=== PATIENT | male | born 1970 | race Caucasian/White ===

== ENCOUNTER 2017-03-14 04:18 | Emergency (ER) | payer OTHER ==
[2017-03-14 04:26] VITALS: TEMP 97.5
[2017-03-14] MEDS ORDERED: NS 500 ML IV ONE (04:35)
--- NOTE | 2017-03-14 04:36 | EDPHY ---
H & P Time Seen by Provider: 03/14/17 04:33 HPI/ROS: HPI Chest discomfort. 46-year-old male by private vehicle. He is visiting from [place]. He is here to attend conference. He arrived at 9:00 p.m.. He reports that for the last week he has had intermittent chest discomfort which he describes as left-sided anterior. He describes this as mild. He states that it is not made worse with physical exertion or activity. He describes it as an intermittent dull ache. He has had some shortness of breath as well since being in the [facility]. He was seen in urgent care earlier this plain. They did EKG and told him it was normal. He is here for further evaluation. At the time of my evaluation he is denying any chest discomfort. He has no history or family history of coronary artery disease. No history of diabetes, hypertension, hyperlipidemia. He does not smoke. ROS: Constitutional: No fever, no chills. No weakness. Eyes: No discharge. No changes in vision. ENT: No sore throat. No nasal congestion or rhinorrhea. Respiratory: No cough. No shortness of breath. Cardiac: As above, no palpitations. Gastrointestinal: No abdominal pain, no vomiting, no diarrhea. Genitourinary: No hematuria. No dysuria or increased frequency with urination. Musculoskeletal: No back pain. No neck pain. No myalgias or arthralgias. Skin: No rashes. Neurological: No headache. No focal weakness or altered sensation. Past medical history: No significant past medical history. Social history: As above. He is here by himself. Physical Exam: General Appearance: Alert, no distress. This patient is responding to questions appropriately and in full sentences. This patient appears well- hydrated and well-nourished. Eyes: Pupils equal and round no pallor or injection. No lid edema, erythema or injection. Respiratory: There are no retractions, lungs are clear to auscultation with good air movement bilaterally. Cardiovascular: Regular rate and rhythm. No murmur. Neurological: Motor sensory function is grossly intact. Cranial nerves are normal. Gait is normal. Skin: Warm and dry, no rashes. Musculoskeletal: Neck is supple and nontender. Extremities are symmetrical. All joints range without pain or impingement. Psychiatric: No agitation. No depression. Database: EKG: EKG time is 4:32 a.m.; EKG shows a narrow complex normal sinus rhythm with a ventricular rate of 57. The [place], QRS, QT intervals are within normal limits. There are no ST-T wave changes indicative of ischemic or injury pattern. No evidence of right heart strain. Interpreted by me. Imaging: Chest x-ray P AP portable; the cardiac mediastinal silhouette is unremarkable. No evidence of infiltrate or pneumothorax. No acute cardiopulmonary disease process noted. Interpreted by me. Procedures: Emergency department course: Patient given 324 mg of chewed aspirin. IV placed. Vital signs reviewed and are normal. He was placed on a monitor. EKG and chest x-ray performed. 5:45 a.m., patient re-evaluated. Resting comfortably at this time. No chest pain. No shortness of breath. Results of his diagnostic workup were discussed with him. I discussed admission for observation and further testing. He does not want to do this at this time. I explained my reasoning for this. In my professional opinion he understood this reasoning. Plan will be to discharge him to home with close follow-up with Cardiology for provocative testing within the next 2-3 days. He is in agreement with this plan. Follow-up discussed in detail with him. Return to emergency department precautions reviewed. All of his questions were answered. He was discharged in good condition. Differential Diagnosis: The differential diagnosis on this patient includes but is not limited to esophageal spasm, pleurisy, mild acute mountain sickness, acute coronary syndrome, pulmonary emboli. Aortic dissection unlikely. This represents a partial list of diagnoses considered. These considerations are based on history , physical exam, past history, reassessment and diagnostic testing. Smoking Status: Never smoked Constitutional: Initial Vital Signs Temperature (C) 36.4 C 03/14/17 04:19 Heart Rate 65 03/14/17 04:19 Respiratory Rate 20 03/14/17 04:19 Blood Pressure 114/66 03/14/17 04:19 O2 Sat (%) 96 03/14/17 04:19 O2 Delivery Mode Room Air Allergies/Adverse Reactions: Penicillins Allergy (Verified 03/14/17 04:47) Medical Decision Making - Data Points Laboratory Results: Laboratory Results 03/14/17 04:35 03/14/17 04:35 Medications Given: Discontinued Medications Sodium Chloride (Ns) 500 mls @ 0 mls/hr IV ONCE ONE PRN Reason: As Directed Stop: 03/14/17 04:36 Last Admin: 03/14/17 04:45 Dose: 500 mls Departure - Departure Disposition: Home, Routine, Self-Care Clinical Impression: Chest discomfort Condition: Good Instructions: Chest Pain (ED) Additional Instructions: Read and follow provided instructions. Follow-up with Cardiology as discussed within the next 2-3 days for a stress test. Call the office of [facility] at 9:00 a.m. this morning for appointment time. Explained this is for an emergency department follow-up. Return to the emergency department immediately for worsening chest pain, worsening shortness of breath or other serious concerns. Referrals: Clifton Bagley MD [Medical Doctor] - As per Instructions [facility] - As per Instructions
[2017-03-14 04:51] LABS: % IMMATURE GRANULYOCYTES 0.4 % (0.0-1.1); ABSOLUTE IMMATURE GRANULOCYTES 0.03 10^3/uL (0.00-0.10); ADD DIFF? NO; ADD MORPH? NO; ADD SCAN? NO; ATYPICAL LYMPHOCYTE FLAG 10 (0-99); FRAGMENT RBC FLAG 0 (0-99); HEMATOCRIT 41.2 % (40.0-51.0); HEMOGLOBIN 13.8 g/dL (13.7-17.5); LEFT SHIFT FLG 0 (0-99); LIPEMIA HEMOLYSIS FLAG 80 (0-99); MEAN CELL HEMOGLOBIN 29.8 pg (27.9-34.1); MEAN CELL HEMOGLOBIN CONCENTR. 33.5 g/dL (32.4-36.7); MEAN PLATELET VOLUME 9.6 fL (8.7-11.7); PLATELET CLUMPS FLAG 0 (0-99); PLATELET COUNT 215 10^3/uL (150-400); RED BLOOD CELL COUNT 4.63 10^6/uL (4.40-6.38); RED CELL DISTRIBUTION WIDTH 13.1 % (11.5-15.2)
[2017-03-14 05:01] LABS: INR 1.09 (0.83-1.16)
[2017-03-14 05:02] LABS: APTT 27.6 SEC (23.0-38.0)
[2017-03-14 05:17] LABS: ANION GAP 8 mEq/L (8-16); CALCIUM 9.2 mg/dL (8.5-10.4); CARBON DIOXIDE 24 mEq/l (22-31); CHLORIDE 108 mEq/L (97-110); GLOMERULAR FILTRATION RATE > 60; GLUCOSE 97 mg/dL (70-100); POTASSIUM 4.1 mEq/L (3.5-5.2); SODIUM 140 mEq/L (134-144)
[2017-03-14 05:28] LABS: CREATINE KINASE-MB FRACTION 0.66 ng/mL (0-3.19); TROPONIN I < 0.012 ng/mL (0-0.034)
[2017-03-14 06:04] VITALS: BP 109/66; PULSE 60; RESP 16; O2SAT 94
--- NOTE | 2017-03-14 08:01 | CPEKG ---
Heart Rate: 57 RR Interval: 1053 P-R Interval: 140 QRSD Interval: 90 QT Interval: 408 QTC Interval: 398 P [place]: 77 QRS [place]: 84 T Wave [place]: 60 EKG Severity - NORMAL ECG - EKG Impression: SINUS RHYTHM Electronically Signed By: Clifton Hamlin 16-Mar-2017 12:07:46
== END 2017-03-14 06:05 | disposition home or self-care (01) ==
DX: R07.89 Other chest pain (principal)